=== PATIENT | female | born 1990 | race Caucasian/White ===

== ENCOUNTER 2019-03-31 | Emergency (ER) | payer MEDICAID | END 2019-03-31 17:38 | disposition home or self-care (01) | CPT/HCPCS: 94640; J2930; J7620 ==

== ENCOUNTER 2019-04-01 11:14 | Emergency (ER) | payer MEDICAID ==
[2019-04-01 11:28] VITALS: BP 123/89; TEMP 98.9; O2SAT 96
--- NOTE | 2019-04-01 11:32 | ED.PDOC ---
History of Present Illness - General Chief Complaint: Respiratory Problem Stated Complaint: Cough, congestion Time Seen by Provider: 04/01/19 11:21 Source: patient Exam Limitations: no limitations - History of Present Illness Initial Comments: the patient's a 28-year-old female presenting to the emergency room secondary to cough and some mild shortness of breath. She does have asthma. She does not have inhaler. She was written for an inhaler yesterday but did not pick it up. She was also given a dose of steroid yesterday. Now the patient has arrived here she is wanting to leave and just go get her prescriptions from yesterday. I recommended that she receive nebulizer treatments here. She has deferred. Timing/Duration: unsure Severity: moderate Improving Factors: nothing Worsening Factors: nothing Associated Symptoms: cough Allergies/Adverse Reactions: Allergies NO KNOWN ALLERGY Allergy (Verified 04/01/19 11:20) Home Medications: Ambulatory Orders Albuterol Inhaler [Ventolin Hfa Inhaler] 108 mcg IN Q4HR PRN #1 inh 03/31/19 predniSONE 10 mg PO BID #14 tab 03/31/19 Review of Systems - Review of Systems Constitutional: States: no symptoms reported EENTM: States: nose congestion, throat pain Respiratory: States: cough, short of breath Cardiology: States: no symptoms reported Gastrointestinal/Abdominal: States: no symptoms reported Genitourinary: States: no symptoms reported Musculoskeletal: States: no symptoms reported Skin: States: no symptoms reported Neurological: States: no symptoms reported Endocrine: States: no symptoms reported Past Medical History (General) - Patient Medical History Hx Seizures: Yes - "Anxiety induced seizures, per patient" Hx Stroke: No Hx Asthma: Yes Hx Congestive Heart Failure: No Hx Diabetes: No Surgical History: no surgical history - Vaccination History Hx Tetanus, Diphtheria Vaccination: No Hx Influenza Vaccination: Yes - 2018 Hx Pneumococcal Vaccination: No - Social History Hx Tobacco Use: Yes Hx Alcohol Use: Yes - Occasional - Female History Patient is a Female of Child Bearing Age (10 -59 yrs old): Yes Patient : No Family Medical History - Family History Mother Living Status: Still Living Hx Family Asthma: Yes - several siblings Hx Family Congestive Heart Failure: Yes Hx Family Hypertension: Yes Hx Family Diabetes: Yes Physical Exam - Physical Exam General Appearance: Alert, Comfortable, No apparent distress Eye Exam: bilateral normal Ears, Nose, Throat: nasal congestion Neck: full range of motion, supple Respiratory: accessory muscle use - mild, rales, rhonchi, wheezing Cardiovascular/Chest: normal peripheral pulses, regular rate, rhythm, no edema Peripheral Pulses: radial,right: 2+, radial,left: 2+ Gastrointestinal/Abdominal: other - obese Rectal Exam: deferred Back Exam: no CVA tenderness, no vertebral tenderness Extremity: non-tender, normal inspection, normal capillary refill 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 The patient has decided that she is going to go and pickle cutter her prescriptions from yesterday. She defers further evaluation or treatment here at this time. ER warnings were given for any worsening. Departure - Departure Clinical Impression: Asthma exacerbation Qualifiers: Asthma severity: moderate Asthma persistence: unspecified Qualified Code(s): J45.901 - Unspecified asthma with (acute) exacerbation Disposition: Discharge to Home or Self Care Condition: Fair Departure Forms: ED Discharge - Pt. Copy, Patient Portal Self Enrollment Instructions: DI for Asthma -- Adult Diet: regular diet Activity: increase activity as tolerated Referrals: UNKNOWN,PHYSICIAN [Primary Care Provider] - 1-2 Weeks Home Medications: Ambulatory Orders Albuterol Inhaler [Ventolin Hfa Inhaler] 108 mcg IN Q4HR PRN #1 inh 03/31/19 predniSONE 10 mg PO BID #14 tab 03/31/19 Additional Instructions: the patient is a 49-year-old male presenting to the emergency room with what appears to be a lower left biceps tendon rupture, due to trauma. The patient will be placed in a sling. He will be written for tramadol for as needed use and he can use Aleve additionally if needed. He does need to contact an orthopedist tomorrow to get set up for an evaluation to see if he would be a good candidate for a repair. He is neurovascularly intact and passive and active range of motion are preserved. ER warnings were given. He should expect some bruising to develop over the next few days.
== END 2019-04-01 11:40 | disposition home or self-care (01) ==
LOC: ER 11:14
DX: J45.901 Unspecified asthma with (acute) exacerbation (principal); Z87.891 Personal history of nicotine dependence; Z79.899 Other long term (current) drug therapy

== ENCOUNTER 2019-08-20 10:17 | Emergency (ER) | payer SELFPAY ==
[2019-08-20] MEDS ORDERED: SODIUM CHLORIDE 0.9% (FLUSH) 10 ML SYG IV PRN (10:23)
[2019-08-20] MEDS ORDERED: SODIUM CHLORIDE 0.9% 1000ML 1,000 ML IVS ONE (10:24)
[2019-08-20] MEDS ORDERED: ONDANSETRON ODT 8 MG TAB SL ONE (10:34)
--- NOTE | 2019-08-20 10:39 | ED.PDOC ---
History of Present Illness - General Chief Complaint: GI Problem Stated Complaint: n/v/d Time Seen by Provider: 08/20/19 10:23 Information Source: patient - History of Present Illness Initial Comments: 29 yo female who presents with cc of diarrhea. Insidious onset of illness yesterday with gradual worsening.today, reports moderate severity overall. States has had 4 episodes of watery diarrhea today in past 3 hours, last approx 30 mins ago. Also reports nausea with 3 episodes of NBNB emesis yesterday but none today. Subjective fevers & chills yesterday but none today. Also reports body aches, malaise, mild cough, mild sore throat. Mild generalized abd discomfort yesterday but none today. No meds taken for relief. Possibly a sick contact over the weekend (child at her daughter's birthday democr[employer]). Has had the flu vaccine. Denies urinary sx's, headache. States she was supposed to work today ([employer]) but could not because of her illness so came to the ED. Review of Systems - Review of Systems Review of Systems: 08/20/19 10:39 as per HPI All other Systems: Reviewed and Negative Past Medical History (General) - Patient Medical History Hx Seizures: Yes - "Anxiety induced seizures, per patient" Hx Stroke: No Hx Asthma: Yes Hx Congestive Heart Failure: No Hx Diabetes: No - Vaccination History Hx Tetanus, Diphtheria Vaccination: No Hx Influenza Vaccination: Yes - 2018 Hx Pneumococcal Vaccination: No - Social History Hx Tobacco Use: Yes Hx Alcohol Use: Yes - Occasional - Female History Patient : No Family Medical History - Family History Mother Living Status: Still Living Hx Family Asthma: Yes - several siblings Hx Family Congestive Heart Failure: Yes Hx Family Hypertension: Yes Hx Family Diabetes: Yes Physical Exam - Physical Exam General Appearance: Alert, Comfortable, No apparent distress Eyes, Ears, Nose, Throat Exam: PERRL/EOMI, normal ENT inspection, pharynx normal Neck: non-tender, full range of motion, supple, normal inspection Respiratory: lungs clear, normal breath sounds, no respiratory distress, no accessory muscle use Cardiovascular/Chest: normal peripheral pulses, regular rate, rhythm, no edema, no gallop, no JVD, no murmur Peripheral Pulses: 2+ Gastrointestinal/Abdominal: soft, no organomegaly, abnormal bowel sounds - diminished throughout, tenderness - mild to suprapubic and RLQ Back Exam: normal inspection, no CVA tenderness Extremity: normal range of motion, non-tender, normal inspection, no pedal edema, no calf tenderness Neurologic: no motor/sensory deficits, alert, normal mood/affect, oriented x 3 Skin Exam: normal color, warm/dry Lymphatic: no adenopathy Progress - Progress Progress: 08/20/19 10:41 Acute diarrheal illness -suspect acute viral gastroenteritis most likely, consider also colitis vs IBS vs flu vs UTI vs electrolyte derangement vs other -obtain CBC, CMP, UA, hcg, flu -Zofran 8 mg ODT in ED 08/20/19 11:59 -Pt feeling much better. Labs unremarkable, flu negative. Suspect acute gastroenteritis. Advised supportive care and will provide Zofran PRN Rx and work note. -dc home in good condition, return warnings discussed at length Marcello Kauffman MD Billing #[id number] Departure - Departure Clinical Impression: Gastroenteritis Time of Disposition: 12:00 Disposition: Discharge to Home or Self Care Condition: Good Departure Forms: ED Discharge - Pt. Copy, Patient Portal Self Enrollment, ED Discharge - Work Release Instructions: Viral Gastroenteritis, Adult (DC) Prescriptions: Ondansetron Odt [Zofran ODT] 8 mg PO Q8H PRN 5 Days #10 tab PRN Reason: Nausea Home Medications: Ambulatory Orders Methylphenidate HCl [Concerta] 27 mg PO 08/20/19 Ondansetron Odt [Zofran ODT] 8 mg PO Q8H PRN 5 Days #10 tab 08/20/19 Oxcarbazepine [Trileptal] 300 mg PO 08/20/19
[2019-08-20 11:39] VITALS: O2SAT 98
[2019-08-20 12:27] VITALS: BP 136/1; TEMP 97.3
== END 2019-08-20 12:10 | disposition home or self-care (01) ==
LOC: ER 10:17 → EDSTATUS 10:19 → ER 12:10
DX: K52.9 Noninfective gastroenteritis and colitis, unspecified (principal); R05 Cough; J02.9 Acute pharyngitis, unspecified; J45.909 Unspecified asthma, uncomplicated; Z87.891 Personal history of nicotine dependence; Z79.899 Other long term (current) drug therapy

== ENCOUNTER 2019-09-12 08:43 | Emergency (ER) | payer SELFPAY ==
[2019-09-12 08:57] VITALS: BP 110/74; TEMP 97.6; O2SAT 98
--- NOTE | 2019-09-12 08:58 | ED.PDOC ---
History of Present Illness - General Chief Complaint: Neuro Symptoms/Deficits Stated Complaint: seizure Time Seen by Provider: 09/12/19 08:57 Source: patient Exam Limitations: no limitations - History of Present Illness Initial Comments: 29 yo F with hx of "anxiety induced seizures" for which she is on trileptal for however has been noncomplaint for the past two weeks because it was making her feels weird, who presents for seizure while at work. No witnesses here at this time. Pt reports posterior headache at this time, unsure if she had any head trauma. Denies headache prior to the seizure. Denies recent illness but does report recent stresses. Denies f/c, cough, congestion, CP, SOB, abd pain, n/v/d, edema, weakness, numbness, change in vision, neck pain, back pain, bowel or bladder incontinence, tongue biting. Allergies/Adverse Reactions: Allergies NO KNOWN ALLERGY Allergy (Verified 08/20/19 10:42) Home Medications: Ambulatory Orders Methylphenidate HCl [Concerta] 27 mg PO 08/20/19 Ondansetron Odt [Zofran ODT] 8 mg PO Q8H PRN 5 Days #10 tab 08/20/19 Oxcarbazepine [Trileptal] 300 mg PO 08/20/19 Review of Systems - Review of Systems Constitutional: Denies: chills, fever EENTM: Denies: blurred vision, double vision, nose congestion, throat pain Respiratory: Denies: cough, short of breath Cardiology: Denies: chest pain, palpitations, syncope Gastrointestinal/Abdominal: Denies: abdominal pain, constipation, diarrhea, nausea, vomiting Genitourinary: Denies: discharge, dysuria, frequency, hematuria Musculoskeletal: Denies: back pain, other Skin: Denies: lesions, rash Neurological: States: headache, seizure. Denies: numbness, weakness Past Medical History (General) - Patient Medical History Hx Seizures: Yes - "Anxiety induced seizures, per patient" Hx Stroke: No Hx Asthma: Yes Hx Congestive Heart Failure: No Hx Diabetes: No Surgical History: cholecystectomy - Vaccination History Hx Tetanus, Diphtheria Vaccination: No Hx Influenza Vaccination: Yes Hx Pneumococcal Vaccination: No - Social History Hx Tobacco Use: Yes Hx Alcohol Use: Yes - Occasional - Female History Patient is a Female of Child Bearing Age (10 -59 yrs old): Yes Patient : No Family Medical History - Family History Mother Living Status: Still Living Hx Family Asthma: Yes - several siblings Hx Family Congestive Heart Failure: Yes Hx Family Hypertension: Yes Hx Family Diabetes: Yes Physical Exam - Physical Exam General Appearance: Alert, Comfortable, No apparent distress, Well Developed, Well Nourished Eye Exam: bilateral normal Ears, Nose, Throat: normal ENT inspection Neck: non-tender, full range of motion, supple, normal inspection Respiratory: chest non-tender, lungs clear, normal breath sounds, no respiratory distress, no accessory muscle use Cardiovascular/Chest: normal peripheral pulses, regular rate, rhythm, no edema, no gallop, no JVD, no murmur Peripheral Pulses: radial,right: 2+, radial,left: 2+ Gastrointestinal/Abdominal: non tender, soft, no organomegaly, no pulsatile mass Back Exam: normal inspection, no CVA tenderness, no vertebral tenderness Extremity: normal range of motion, non-tender, normal inspection, no pedal edema, no calf tenderness, normal capillary refill 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 I explained that while they retain the right to leave whenever they choose, I strongly recommend against it. In addition, I explained that they may subject themselves to potentially worsening their condition; progression that may include additional pain, disability, and even could not be excluded. At this time, the patient still requested to leave and subsequently left the department ag ainst medical advice. Priscilla Garcia MD Emergency Medicine Physician Billing Number [id number] Departure - Departure Clinical Impression: Seizure-like activity Time of Disposition: 09:20 Disposition: Left Against Medical Advice Health Concerns: Condition: unknown Departure Forms: ED Discharge - Pt. Copy, Patient Portal Self Enrollment Home Medications: Ambulatory Orders Methylphenidate HCl [Concerta] 27 mg PO 08/20/19 Ondansetron Odt [Zofran ODT] 8 mg PO Q8H PRN 5 Days #10 tab 08/20/19 Oxcarbazepine [Trileptal] 300 mg PO 08/20/19
== END 2019-09-12 09:21 | disposition left against medical advice (07) ==
LOC: ER 08:43
DX: R56.9 Unspecified convulsions (principal); R51 Headache; J45.909 Unspecified asthma, uncomplicated; Z53.29 Procedure and treatment not carried out because of patient's decision for other reasons; Z91.14 Patient's other noncompliance with medication regimen; Z79.899 Other long term (current) drug therapy; Z87.891 Personal history of nicotine dependence

== ENCOUNTER 2019-10-09 18:47 | Emergency (ER) | payer SELFPAY ==
[2019-10-09 19:00] VITALS: TEMP 98.1
[2019-10-09] MEDS ORDERED: HYDROcodone 5MG/APAP 325MG 1 EA TAB PO ONE (19:00)
[2019-10-09] MEDS ORDERED: ONDANSETRON ODT 8 MG TAB SL ONE (19:00)
--- NOTE | 2019-10-09 19:04 | ED.PDOC ---
History of Present Illness - General Time Seen by Provider: 10/09/19 18:53 Information Source: patient, family Exam Limitations: no limitations - History of Present Illness Initial Comments: CC: n/v/d 29 F no pmh presents with significant other to ED c/o acute onset today of nonbloody diarrhea with nausea and nonbloody nonbilious emesis. Pt endorses associated bodyaches but denies headache, dizziness, neck pain, sore throat, cough, congestion, dysuria. Pt has received influenza vaccination this year. She is otherwise healthy with no other signs, symptoms, or complaints. Review of Systems - Review of Systems Constitutional: Denies: chills, fever EENTM: Denies: nose congestion, throat pain Respiratory: Denies: cough, short of breath Cardiology: Denies: chest pain Gastrointestinal/Abdominal: States: abdominal pain, diarrhea, nausea, vomiting. Denies: constipation Genitourinary: Denies: dysuria, frequency, hematuria Musculoskeletal: States: back pain, joint pain, muscle pain. Denies: neck pain Skin: Denies: change in color, rash Neurological: Denies: headache Past Medical History (General) - Patient Medical History Hx Seizures: Yes Hx Stroke: No Hx Dementia: No Hx Asthma: No Hx of COPD: No Hx Cardiac Disorders: No Hx Congestive Heart Failure: No Hx Pacemaker: No Hx Hypertension: No Hx Thyroid Disease: No Hx Diabetes: No Hx Gastroesophageal Reflux: No Hx Renal Disease: No Hx Cancer: No Hx of HIV: No Hx Hepatitis C: No Hx MRSA: No Surgical History: cholecystectomy, tonsillectomy, other - Vaccination History Hx Tetanus, Diphtheria Vaccination: Yes Hx Influenza Vaccination: Yes Hx Pneumococcal Vaccination: No - Social History Hx Tobacco Use: Yes Hx Chewing Tobacco Use: No Hx Alcohol Use: Yes Hx Substance Use: No Hx Substance Use Treatment: No Hx Depression: No Feels Threatened In Home Enviroment: No Feels Threatened In a Relationship: No Hx Physical Abuse: No Hx Emotional Abuse: No Hx Suspected Abuse: No - Female History Patient is a Female of Child Bearing Age (10 -59 yrs old): Yes Patient : No Family Medical History - Family History Mother Living Status: Still Living Hx Family Asthma: Yes - several siblings Hx Family Congestive Heart Failure: Yes Hx Family Hypertension: Yes Hx Family Diabetes: Yes Physical Exam - Physical Exam General Appearance: Alert, Comfortable, Other - Non-toxic. Obese Eyes, Ears, Nose, Throat Exam: normal ENT inspection, pharynx normal Neck: full range of motion, supple Respiratory: lungs clear, normal breath sounds, no respiratory distress, no accessory muscle use Cardiovascular/Chest: normal peripheral pulses, regular rate, rhythm, no edema, no JVD, other - no tachycardia on monitor or by ascultation with examination. Gastrointestinal/Abdominal: normal bowel sounds, soft, other - generalized TTP without localization, no rebound, no guarding Extremity: normal inspection, no pedal edema Neurologic: alert, normal mood/affect, oriented x 3 Skin Exam: normal color, warm/dry, other - no rash Progress - Progress Progress: Presents with likely viral induced gastroenteritis. I will provide with antiemetic to achieve PO tolerance, provide Mcbrides for generalized aches and diarrhea, and have pt rehydrate by mouth. Discharge home with education, f/u, and prescription expected. 19:29 Rechecked pt. Nausea improved but not resolved. I will order 12.5mg Phenergan IM. 20:19 Rechecked pt with significant other at bedside. NAD, VSS, and nausea/pain are improved. Pt is wanting to go home to sleep now. Discussed diagnosis, clinical impression, discharge, f/u, education, and prescriptions. Pt voices understanding, agrees with plan, and all questions answered. Departure - Departure Clinical Impression: Gastroenteritis Time of Disposition: 20:16 Disposition: Discharge to Home or Self Care Condition: Fair Departure Forms: ED Discharge - Pt. Copy Instructions: Viral Gastroenteritis, Adult (DC), Nausea and Vomiting, Adult (DC) Referrals: Your, Primary Care Physician [Other] - 1 Week (Follow up in 5-7 days as needed.) Prescriptions: Dicyclomine HCl [Bentyl] 20 mg PO TID PRN #20 tab PRN Reason: Abdominal Distress Ondansetron Tab [Zofran Tab] 4 mg PO TID PRN #12 tab PRN Reason: Nausea/Vomiting Home Medications: Ambulatory Orders Oxcarbazepine [Trileptal] 300 mg PO 08/20/19 Citalopram Hydrobromide [Celexa] 40 mg PO DAILY 10/09/19 Dicyclomine HCl [Bentyl] 20 mg PO TID PRN #20 tab 10/09/19 Ondansetron Tab [Zofran Tab] 4 mg PO TID PRN #12 tab 10/09/19
[2019-10-09] MEDS ORDERED: PROMETHAZINE HCL INJ 25 MG/ML VIAL IM ONE (19:30)
[2019-10-09 20:22] VITALS: BP 98/59; O2SAT 96
== END 2019-10-09 20:23 | disposition home or self-care (01) ==
LOC: ER 18:47
DX: K52.9 Noninfective gastroenteritis and colitis, unspecified (principal); R56.9 Unspecified convulsions; Z90.49 Acquired absence of other specified parts of digestive tract; Z87.891 Personal history of nicotine dependence; Z79.899 Other long term (current) drug therapy
CPT/HCPCS: 87502; J2550

== ENCOUNTER 2020-07-25 09:23 | Emergency (ER) | payer SELFPAY ==
--- NOTE | 2020-07-25 09:39 | ED.PDOC ---
History of Present Illness - General Time Seen by Provider: 07/25/20 09:38 Source: patient - History of Present Illness Initial Comments: 30-year-old female who presents with chief complaint of headache and acute illness. Reports onset of symptoms about 3 days ago and gradually worsening. Currently reports headache as constant, 7/10 severity, describes as mostly dull but occasionally sharp, located all throughout the head without radiation, worse since this morning, has tried Tylenol at home without relief. Additionally reports intermittent dry cough, occasional tightness in her chest, mild intermittent upper abdominal cramping, a couple episodes of watery diarrhea since yesterday, fatigue, malaise. Denies fevers, chills, body aches, urinary symptoms, nausea/vomiting. Patient admits to smoking cigarettes daily, reports has had 1 cigarette today. Reports a coworker recently tested positive for COVID-19. She works at a convenience store. LMP was 2 weeks ago. Allergies/Adverse Reactions: Allergies NO KNOWN ALLERGY Allergy (Verified 07/25/20 09:45) Home Medications: Ambulatory Orders Oxcarbazepine [Trileptal] 300 mg PO BID 08/20/19 Citalopram Hydrobromide [Celexa] 40 mg PO DAILY 10/09/19 Review of Systems - Review of Systems Review of Systems: 07/25/20 09:53 as per HPI All other Systems: Reviewed and Negative Past Medical History (General) - Patient Medical History Hx Seizures: Yes Hx Stroke: No Hx Dementia: No Hx Asthma: No Hx of COPD: No Hx Cardiac Disorders: No Hx Congestive Heart Failure: No Hx Pacemaker: No Hx Hypertension: No Hx Thyroid Disease: No Hx Diabetes: No Hx Gastroesophageal Reflux: No Hx Renal Disease: No Hx Cancer: No Hx of HIV: No Hx Hepatitis C: No Hx MRSA: No - Vaccination History Hx Tetanus, Diphtheria Vaccination: Yes Hx Influenza Vaccination: Yes Hx Pneumococcal Vaccination: No - Social History Hx Tobacco Use: Yes Hx Chewing Tobacco Use: No Hx Alcohol Use: Yes Hx Substance Use: No Hx Substance Use Treatment: No Hx Depression: No Hx Physical Abuse: No Hx Emotional Abuse: No Hx Suspected Abuse: No - Female History Patient : No Family Medical History - Family History Mother Living Status: Still Living Hx Family Asthma: Yes - several siblings Hx Family Congestive Heart Failure: Yes Hx Family Hypertension: Yes Hx Family Diabetes: Yes Physical Exam - Physical Exam General Appearance: Alert, No apparent distress Eye Exam: bilateral normal Ears, Nose, Throat: hearing grossly normal, normal ENT inspection, normal pharynx Neck: non-tender, full range of motion, supple, normal inspection Respiratory: lungs clear, normal breath sounds, no respiratory distress, no accessory muscle use Cardiovascular/Chest: normal peripheral pulses, regular rate, rhythm, no edema, no gallop, no JVD, no murmur, other - Chest tightness reproducible with palpation of chest wall Peripheral Pulses: radial,right: 2+, radial,left: 2+ Gastrointestinal/Abdominal: soft, tenderness - minimal ttp across upper abd w/o guarding or rebound Back Exam: normal inspection, no CVA tenderness, no vertebral tenderness Extremity: normal range of motion, non-tender, normal inspection, no pedal edema, no calf tenderness, normal capillary refill 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 Consider also tension headache, migraine headache, UTI, , dehydration, metabolic derangement, other -Patient stable, no acute distress, afebrile, vitals within normal limits -Obtain chest x-ray, blood work, rapid testing for COVID-19/flu/strep -Place peripheral IV, 1 L normal saline bolus, Toradol 30 mg IV for headache 07/25/20 10:39 -Patient reports feeling much better, remains stable. -ED work-up is largely unremarkable. Patient is negative for COVID- 19/flu/strep. -Discussed diagnosis of viral URI and tension headache. advised remaining well-hydrated and continued supportive care at home. -Discharged home in good condition, return warnings discussed. Advised to quit smoking. Marcello Kauffman MD Billing #[id number] 07/25/20 09:48 Telemetry .ONCE Sodium Chloride 0.9% (Flush) [Saline Flush Syringe] 10 ml IV PRN PRN Pulse Oximetry Assessment DAILY 07/25/20 09:49 Sodium Chloride 0.9% 1000ML [Ns 1000 ml] 1,000 ml IVS ONCE URINALYSIS Stat 07/25/20 10:00 STREP A SCREEN CULTURE Stat 07/26/20 09:00 Pulse Ox Daily Laboratory Results - last 24 hr 07/25/20 07/25/20 07/25/20 10:00 10:00 10:05 WBC 10.7 RBC 4.63 Hgb 13.8 Hct 40.1 MCV 86.5 MCH 29.7 MCHC 34.3 RDW 13.2 Plt Count 277 MPV 7.9 Absolute Neuts (auto) 7.60 H Absolute Lymphs (auto) 2.20 Absolute Monos (auto) 0.70 Absolute Eos (auto) 0.10 Absolute Basos (auto) 0.10 Neutrophils % 71.1 Lymphocytes % 20.6 Monocytes % 6.1 Eosinophils % 1.3 Basophils % 0.9 Sodium Potassium Chloride Carbon Dioxide Anion Gap BUN Creatinine BUN/Creatinine Ratio Random Glucose Serum Osmolality Calcium Total Bilirubin AST ALT Alkaline Phosphatase Serum Total Protein Albumin Globulin Albumin/Globulin Ratio Serum HCG, Qual Negative Group A Strep Rapid Negative 07/25/20 10:05 WBC RBC Hgb Hct MCV MCH MCHC RDW Plt Count MPV Absolute Neuts (auto) Absolute Lymphs (auto) Absolute Monos (auto) Absolute Eos (auto) Absolute Basos (auto) Neutrophils % Lymphocytes % Monocytes % Eosinophils % Basophils % Sodium 138 Potassium 3.5 L Chloride 103 Carbon Dioxide 25 Anion Gap 13.5 BUN 10 Creatinine 0.60 BUN/Creatinine Ratio 16.7 Random Glucose 115 H Serum Osmolality 275.6 Calcium 9.0 Total Bilirubin 0.5 AST 19 ALT 16 Alkaline Phosphatase 79 Serum Total Protein 7.3 Albumin 4.0 Globulin 3.3 Albumin/Globulin Ratio 1.2 Serum HCG, Qual Group A Strep Rapid - EKG/XRAY/CT EKG: Sinus - Normal sinus rhythm, heart rate 80, no ST elevations or Q waves noted, nonspecific T wave changes present, axis normal, intervals normal, no prior EKG for comparison. XRAY: chest - No acute processes per my read Departure - Departure Clinical Impression: Tension headache, Viral upper respiratory infection Time of Disposition: 10:35 Disposition: Discharge to Home or Self Care Condition: Good Departure Forms: ED Discharge - Work Release Instructions: Viral Upper Respiratory Infection, Adult (DC), Headache, Adult (DC) Diet: resume usual diet Activity: increase activity as tolerated Home Medications: Ambulatory Orders Oxcarbazepine [Trileptal] 300 mg PO BID 11/11/19 Citalopram Hydrobromide [Celexa] 40 mg PO DAILY 10/09/19 Additional Instructions: Remain well-hydrated and gradually advance your diet and activity level as tolerated. Continue taking [id number] medications as needed for headache or pain such as ibuprofen 600 mg every 6 hours as needed and Tylenol 650 mg every 6 hours as needed. I advise that you quit smoking at least until you are well but it would be best to quit altogether due to numerous health risks caused by smoking. Follow-up with your primary care physician as scheduled or sooner as needed.
[2020-07-25] MEDS ORDERED: SODIUM CHLORIDE 0.9% (FLUSH) 10 ML SYG IV PRN (09:48)
[2020-07-25] MEDS ORDERED: SODIUM CHLORIDE 0.9% 1000ML 1,000 ML IVS ONE (09:49)
[2020-07-25] MEDS ORDERED: KETOROLAC TROMETHAMINE INJ 30 MG/ML VIAL IV ONE (09:49)
--- NOTE | 2020-07-25 10:18 | RAD ---
EXAM DESCRIPTION: Chest,1 View CLINICAL HISTORY: 30 years Female, cough, chest tightness COMPARISON: None. FINDINGS: One view/radiograph Heart size and pulmonary vessels are within normal limits. There is no pneumothorax or pleural effusion. The left lung is clear. Right basilar airspace disease. The soft tissues are unremarkable. No acute osseous findings. IMPRESSION: Right basilar airspace disease, possibly pneumonia. Electronically signed by: Paul Banerjee MD 07/25/2020 10:17 AM CDT
[2020-07-25] MEDS ORDERED: PROMETHAZINE HCL INJ 12.5 MG in SODIUM CHLORIDE 0.9% 50ML 50 ML IVPB ONE (10:44)
[2020-07-25 11:40] VITALS: BP 102/71; TEMP 97.2; O2SAT 100
== END 2020-07-25 11:40 | disposition home or self-care (01) ==
LOC: ER 09:23
DX: G44.209 Tension-type headache, unspecified, not intractable (principal); J06.9 Acute upper respiratory infection, unspecified; F17.210 Nicotine dependence, cigarettes, uncomplicated; Z20.828 Contact with and (suspected) exposure to other viral communicable diseases
CPT/HCPCS: 36415; 71045; 80053; 84703; 85025; 87070; 87502; 87635; 87880; 93005; 94760; A4216; J1885; J7030